=== PATIENT | female | born 1995 | race African-American/Black ===

== ENCOUNTER 2018-02-20 20:06 | Emergency (ER) | payer OTHER ==
[~2018-02-20] VITALS: Ht 165.1 cm; Wt 122.5 kg
[~2018-02-20 20:06] MED LIST: ADVIL MIGRAINE200 M1 PO; ALKA-SELTZER B324 MG PO; CORTISPORIN OTI10 M2 OT; HYDROCODONE-AP1 EAC6 PO; IBUPROFEN 200200 M1; IBUPROFEN 800800 M1 PO; MACROBID 100 M100 M1 PO; MIDOL220 MG PO; MUCUS RELIEF600 MG; NORCO 5-325 TA1 EACH PO; SENNA8.6 M1 PO; ULTRAM 50MG TAB50 MG PO; ZOFRAN4 MG PO
[2018-02-20] MEDS ORDERED: VENTOLIN HFA 1818 GM INH (21:04)
[2018-02-20] MEDS ORDERED: AMOXICILLIN 50500 MG PO (21:23)
[2018-02-20] MEDS ORDERED: NAPROSYN500 MG PO (21:23)
[2018-02-20 21:50] VITALS: BP 145/95
== END 2018-02-20 21:54 | disposition home or self-care (01) ==
LOC: ER 20:06
DX: K08.89 Other specified disorders of teeth and supporting structures (principal); R59.0 Localized enlarged lymph nodes; R68.84 Jaw pain; J45.909 Unspecified asthma, uncomplicated; Z90.89 Acquired absence of other organs